=== PATIENT | male | born 1990 | race Two or more races ===

== ENCOUNTER 2016-10-18 20:12 | Emergency (ER) | payer MEDICAID ==
[~2016-10-18] VITALS: Ht 180.3 cm; Wt 74.8 kg
[~2016-10-18 20:12] MED LIST: ALPR2TAB95; MARIJUANA-MEDICAL; NOR10T
[2016-10-18 20:20] VITALS: BP 141/97
== END 2016-10-19 01:26 | disposition left against medical advice (07) ==
LOC: EDBD 20:12 → ER 20:19
DX: F10.10 Alcohol abuse, uncomplicated (principal); Z53.21 Procedure and treatment not carried out due to patient leaving prior to being seen by health care provider

== ENCOUNTER 2019-10-17 17:20 | Emergency (ER) | payer MEDICAID ==
[~2019-10-17] VITALS: Ht 185.4 cm; Wt 68.0 kg
[2019-10-17 22:42] VITALS: BP 133/68
[2019-10-17] MEDS ORDERED: cefTRIAXone SOD 1,000 MG VL IM ONE (22:45)
[2019-10-17] MEDS ORDERED: LIDOCAINE 1% HCL (LOCAL ANESTH.) INJ 20ML MDV IJ ONE (22:45)
[2019-10-17] MEDS ORDERED: KETOROLAC TROMETH 60MG/2ML VIAL IM ONE (22:45)
== END 2019-10-18 00:17 | disposition home or self-care (01) ==
LOC: ER 17:20
DX: L02.413 Cutaneous abscess of right upper limb (principal); M79.631 Pain in right forearm; F17.210 Nicotine dependence, cigarettes, uncomplicated; F41.9 Anxiety disorder, unspecified; Z79.899 Other long term (current) drug therapy
CPT/HCPCS: 10060; 96372; 99284; J0696; J1885; J2001

== ENCOUNTER 2020-08-25 23:26 | Emergency (ER) | payer MEDICAID ==
[~2020-08-25] VITALS: Ht 182.9 cm; Wt 74.8 kg
[2020-08-26] MEDS ORDERED: fentaNYL CITRATE 100 MCG/2 ML VL IV ONE ×2 (01:15→02:30)
[2020-08-26] MEDS ORDERED: ONDANSETRON HCL 4 MG/2 ML VIAL IV ONE (01:15)
[2020-08-26] MEDS ORDERED: HYDROmorphone HCL 2 MG/ML VL IV ONE (04:00)
[2020-08-26 05:16] VITALS: BP 123/67
== END 2020-08-26 06:55 | disposition home or self-care (01) ==
LOC: ER 23:26
DX: S02.611A Fracture of condylar process of right mandible, initial encounter for closed fracture (principal); S02.40EA Zygomatic fracture, right side, initial encounter for closed fracture; F17.210 Nicotine dependence, cigarettes, uncomplicated; Y08.89XA Assault by other specified means, initial encounter; Y93.89 Activity, other specified; Y92.89 Other specified places as the place of occurrence of the external cause; Y99.8 Other external cause status
CPT/HCPCS: 70450; 70486; 96374; 96375; 96376; 99285; J1170; J2405; J3010; J7030

== ENCOUNTER 2021-04-05 22:37 | Emergency (ER) | payer MEDICAID ==
[~2021-04-05] VITALS: Ht 185.4 cm; Wt 72.1 kg
[2021-04-06] MEDS ORDERED: VANCOMYCIN 1GM/250ML 250 ML IV ONE (03:15)
[2021-04-06] MEDS ORDERED: PIPERACILLIN-TAZOB 3.375GM 100 ML IV ONE (03:15)
[2021-04-06 03:34] LABS: Basophils # (auto) 0 10 ^3/uL (0-0.2); Basophils % (auto) 0.1 % (0.0-2.0); Lymphocytes # (auto) 1.8 10 ^3/uL (0.4-5.4); Monocytes # (auto) 0.6 10 ^3/uL (0-1.3); Nucleated Red Blood Cells % 0.1 %
[2021-04-06 03:36] LABS: Eosinophils # (auto) 0.1 10 ^3/uL (0-0.8); Hematocrit 40.2 % (41.0-53.0); Hemoglobin 13.5 g/dL (13.5-17.5); Lymphocytes % (auto) 25.1 % (10.0-50.0); Mean Corpuscular Hemoglobin 26.4 pg (28.0-32.0); Mean Corpuscular Hgb Conc. 33.6 g/dL (32.0-36.0); Mean Corpuscular Volume 78.4 fL (80.0-100.0); Neutrophils # (auto) 4.6 10 ^3/uL (1.6-8.6); Neutrophils % (auto) 65.8 % (37.0-80.0); Red Blood Cells 5.13 10^6/uL (4.5-5.90); Red Cell Distribution Width 14.3 % (11.8-14.3)
[2021-04-06 03:51] LABS: Albumin 3.6 g/dL (3.4-5.0); Potassium 3.7 mmol/L (3.5-5.1)
[2021-04-06 03:54] LABS: BUN/Creatinine Ratio 12.5; Bilirubin, Total 0.4 mg/dL (0.2-1.0); Total Protein 8.1 g/dL (6.4-8.2)
[2021-04-06] MEDS ORDERED: HYDROmorphone HCL 2 MG/ML VL IV ONE (05:45)
[2021-04-06] MEDS ORDERED: ONDANSETRON HCL 4 MG/2 ML VIAL IV ONE (05:45)
[2021-04-06] MEDS ORDERED: HYDROcodone-ACET 5/325MG TAB PO PRN (06:00)
[2021-04-06] MEDS ORDERED: HYDROmorphone HCL 2 MG/ML VL IV PRN (06:00)
[2021-04-06] MEDS ORDERED: VANCOMYCIN PER PHARMACY 0 MG IV SCH (06:00)
[2021-04-06] MEDS ORDERED: ACETAMINOPHEN 325 MG TAB PO PRN (06:00)
[2021-04-06] MEDS ORDERED: PIPERACILLIN-TAZOB 3.375GM 100 ML IV SCH (06:00)
[2021-04-06] MEDS ORDERED: ONDANSETRON HCL 4 MG/2 ML VIAL IV PRN (06:00)
[2021-04-06] MEDS ORDERED: SODIUM CHLORIDE 0.9% 1,000 ML IV SCH (06:00)
[2021-04-06] MEDS ORDERED: DOCUSATE SOD 100 MG CAP PO PRN (06:00)
[2021-04-06] MEDS ORDERED: VANCOMYCIN 1GM/250ML 250 ML IV SCH ×2 (06:15→13:00)
[2021-04-06 08:37] VITALS: BP 128/77
[2021-04-06 09:30] LABS: Alcohol, Urine < 3.0 mg/dL (0-10); Amphetamine Screen, Urine POSITIVE (NEGATIVE); Barbiturate Scree,Urine NEGATIVE (NEGATIVE); Benzodiazephine Screen, Urine NEGATIVE (NEGATIVE); Cannabinoid Screen, Urine NEGATIVE (NEGATIVE); Cocaine Screen, Urine NEGATIVE (NEGATIVE); Opiate Scree,Urine POSITIVE (NEGATIVE); Phencyclidine Screen, Urine NEGATIVE (NEGATIVE)
[2021-04-06] MEDS ORDERED: FAMOTIDINE (10MG/ML) 2ML VL IV SCH (10:00)
[2021-04-06] MEDS ORDERED: ASCORBIC ACID 500 MG TAB PO SCH (10:00)
[2021-04-06] MEDS ORDERED: MULTIPLE VITAMIN TAB PO SCH (10:00)
[2021-04-06] MEDS ORDERED: ZINC SULFATE 220mg CAP or TAB PO SCH (10:00)
[2021-04-06] MEDS ORDERED: ENOXAPARIN SOD 40 MG/0.4 ML SYRINGE SC SCH (10:00)
== END 2021-04-06 10:59 | disposition left against medical advice (07) ==
LOC: ER 22:40
DX: U07.1 COVID-19 (principal); L02.511 Cutaneous abscess of right hand; F17.210 Nicotine dependence, cigarettes, uncomplicated; F15.10 Other stimulant abuse, uncomplicated
CPT/HCPCS: 36415; 73200; 80053; 80307; 80320; 85025; 87426; 96365; 96367; 96375; 96376; 99285; J1170; J2405; J2543; J3370; J7030